=== PATIENT | female | born 1970 | race Caucasian/White ===

== ENCOUNTER 2016-10-07 18:54 | Inpatient (IN) | payer BC, OTHER ==
[~2016-10-07] VITALS: Ht 152.4 cm; Wt 70.4 kg
[2016-10-07 18:56] VITALS: BP 241/105; PULSE 104; RESP 20; TEMP 98.1; O2SAT 98
[2016-10-07] MEDS ORDERED: SODIUM CHLOR 0.9% 1000 ML INJ 1,000 ML IV SCH (20:00)
[2016-10-07] MEDS ORDERED: THIAMINE INJ 100 MG in SODIUM CHLORIDE 0.9% INJ 100 ML IV ONE (20:00)
[2016-10-07] MEDS ORDERED: LORazepam 2 MG/ML VIAL IV PUSH ONE (20:00)
--- NOTE | 2016-10-07 20:11 | PD ---
HPI Chief Complaint: Medical Clearance Time Seen by Provider: 19:31 Travel History International Travel<30 days: No Contact w/Intl Traveler<30days: No Traveled to known affect area: No History of Present Illness HPI 45-year-old female complains of generalized malaise and weakness, shakiness, depression, suicidal ideation. Patient has history alcohol abuse. Last drink was this afternoon about 1:00. Patient has been drinking a lot of vodka recently. Patient states that she started having shaking problem this afternoon. Patient states that she has history of alcohol withdrawal in the past. Patient denies any history of DVT. Patient has history of PTSD, depression and was seen by mental health in the past. Patient was put on medications. Patient has not been taken her medications recently. Patient states that she started having suicidal ideation today. Patient denies any other medical problem. Patient states that she has mild aching headache. Patient denies any visual change. Patient denies any neck pain. Patient denies any chest pain or shortness of breath. Patient states that she has mild intermittent abdominal cramping. Patient denies any nausea vomiting diarrhea. Patient denied dysuria or frequency. Patient denies any fever chills. Patient denies any illicit drug abuse. PFSH Past Medical History Anxiety: Yes Depression: Yes ?: Not LMP: 10/01/16 Social History Alcohol Use: Yes (LAST DRINK AT 1300 TODAY 10/07/16) Tobacco Use: Yes Substance Use: No Allergies-Medications (Allergen,Severity, Reaction): Coded Allergies: No Known Allergies (Unverified , 10/07/16) Review of Systems General / Constitutional: No: Fever Eyes: No: Visual changes HENT: No: Headaches Cardiovascular: No: Chest Pain or Discomfort Respiratory: No: Shortness of Breath Gastrointestinal: No: Abdominal Pain Genitourinary: No: Dysuria Musculoskeletal: No: Pain Skin: No Rash Neurologic: No: Weakness Psychiatric: No: Depression Endocrine: No: Polydipsia Hematologic/Lymphatic: No: Easy Bruising Physical Exam Narrative GENERAL: Well-nourished, well-developed patient. SKIN: Warm and dry. HEAD: Normocephalic. EYES: No scleral icterus. No injection or drainage. NECK: Supple, trachea midline. No JVD or lymphadenopathy. CARDIOVASCULAR: Mild tachycardia rate and rhythm without murmurs, gallops, or rubs. RESPIRATORY: Breath sounds equal bilaterally. No accessory muscle use. GASTROINTESTINAL: Abdomen soft, non-tender, nondistended. MUSCULOSKELETAL: No cyanosis, or edema. BACK: Nontender without obvious deformity. No CVA tenderness. Neurologic exam: Patient is awake and alert oriented 3. No obvious focal neurological deficit. Data Data Last Documented VS Vital Signs Date Time Temp Pulse Resp B/P Pulse Ox O2 Delivery O2 Flow Rate FiO2 10/07/16 21:30 84 16 148/72 97 Room Air 10/07/16 18:56 98.1 Orders Complete Blood Count With Diff (10/07/16 20:00) Comprehensive Metabolic Panel (10/07/16 20:00) Magnesium (Mg) (10/07/16 20:00) Alcohol (Ethanol) (10/07/16 20:00) Phosphorus (Po4) (10/07/16 20:00) Iv Access Insert/Monitor (10/07/16 20:00) Ecg Monitoring (10/07/16 20:00) Oximetry (10/07/16 20:00) Sodium Chlor 0.9% 1000 Ml Inj (Ns 1000 M (10/07/16 20:00) Thiamine Inj (Thiamine Inj) (10/07/16 20:00) Lorazepam Inj (Ativan Inj) (10/07/16 20:00) Urinalysis - C+S If Indicated (10/07/16 20:01) Drug Screen, Random Urine (10/07/16 20:01) Psych Screen (10/07/16 20:01) Ondansetron Inj (Zofran Inj) (10/07/16 21:13) Ondansetron Inj (Zofran Inj) (10/07/16 21:30) Labs Laboratory Tests Test 10/07/16 10/07/16 20:05 21:40 White Blood Count 10.6 TH/MM3 Red Blood Count 4.17 MIL/MM3 Hemoglobin 14.0 GM/DL Hematocrit 40.9 % Mean Corpuscular Volume 98.0 FL Mean Corpuscular Hemoglobin 33.6 PG Mean Corpuscular Hemoglobin 34.3 % Concent Red Cell Distribution Width 14.0 % Platelet Count 467 TH/MM3 Mean Platelet Volume 6.8 FL Neutrophils (%) (Auto) 52.1 % Lymphocytes (%) (Auto) 39.7 % Monocytes (%) (Auto) 6.6 % Eosinophils (%) (Auto) 1.0 % Basophils (%) (Auto) 0.6 % Neutrophils # (Auto) 5.5 TH/MM3 Lymphocytes # (Auto) 4.2 TH/MM3 Monocytes # (Auto) 0.7 TH/MM3 Eosinophils # (Auto) 0.1 TH/MM3 Basophils # (Auto) 0.1 TH/MM3 CBC Comment DIFF FINAL Differential Comment Urine Color YELLOW Urine Turbidity HAZY Urine pH 7.0 Urine Specific Gallagher 1.015 Urine Protein TRACE mg/dL Urine Glucose (UA) NEG mg/dL Urine Ketones NEG mg/dL Urine Occult Blood SMALL Urine Nitrite NEG Urine Bilirubin NEG Urine Urobilinogen LESS THAN 2.0 MG/DL Urine Leukocyte Esterase NEG Urine RBC 3 /hpf Urine WBC 2 /hpf Urine Squamous Epithelial 10 /hpf Cells Urine Mucus FEW /lpf Microscopic Urinalysis Comment CULT NOT INDICATED Urine Opiates Screen NEG Urine Barbiturates Screen NEG Urine Amphetamines Screen NEG Urine Benzodiazepines Screen NEG Urine Cocaine Screen NEG Urine Cannabinoids Screen NEG Sodium Level 139 MEQ/L Potassium Level 3.4 MEQ/L Chloride Level 105 MEQ/L Carbon Dioxide Level 24.0 MEQ/L Anion Gap 10 MEQ/L Blood Urea Nitrogen 7 MG/DL Creatinine 0.53 MG/DL Estimat Glomerular Filtration 126 ML/MIN Rate Random Glucose 71 MG/DL Calcium Level 7.5 MG/DL Phosphorus Level 2.9 MG/DL Magnesium Level 1.7 MG/DL Total Bilirubin 0.2 MG/DL Aspartate Amino Transf 56 U/L (AST/SGOT) Alanine Aminotransferase 52 U/L (ALT/SGPT) Alkaline Phosphatase 61 U/L Total Protein 6.6 GM/DL Albumin 3.5 GM/DL Ethyl Alcohol Level 51 MG/DL [facility] Medical Decision Making Medical Screen Exam Complete: Yes Emergency Medical Condition: Yes Interpretation(s) 22:47 PM. CBC within normal limit. Potassium 3.4. Calcium 7.5. AST 56. Alcohol 51. UA negative. Differential Diagnosis Differential diagnosis including alcohol withdrawal, electrolyte imbalance, dehydration, depression, suicidal. Narrative Course 45-year-old female with shakiness, elevated blood pressure, history of EtOH abuse. Patient is in alcohol withdrawal. Normal saline solution 1 25 cc an hour. Thiamine 100 mg IV. Ativan 1 mg IV. Diagnosis Primary Impression: Alcohol withdrawal Qualified Code: F10.230 - Alcohol withdrawal, uncomplicated Additional Impression: Suicidal ideation Neo Vazquez MD Oct 07, 2016 20:11
[2016-10-07 20:19] VITALS: O2SAT 98
[2016-10-07 20:30] VITALS: BP 178/89; PULSE 88; RESP 18; O2SAT 98
[2016-10-07 21:00] VITALS: BP 157/74; PULSE 78; RESP 18; O2SAT 97
[2016-10-07 21:09] LABS: AMPHETAMINE, URINE NEG (NEG); BARBITURATES, URINE NEG (NEG); COCAINE, URINE NEG (NEG)
[2016-10-07 21:12] LABS: BLOOD, URINE SMALL (NEG); COMMENT (UR) CULT NOT INDICATED; CULTURE IF INDICATED CULT NOT INDICATED; GLUCOSE,URINE NEG (NEG); KETONE, URINE NEG (NEG); MUCUS URINE FEW /lpf (OCC); NITRITE,URINE NEG (NEG); SQUAMOUS EPITHELIAL CELL URINE 10 /hpf (0-5); URINE COLOR YELLOW (YELLW/STRAW)
[2016-10-07] MEDS ORDERED: ONDANSETRON HCL 4 MG/2 ML VIAL ONE (21:13)
[2016-10-07 21:19] LABS: AUTOMATED NEUTROPHIL # 5.5 TH/MM3 (1.8-7.7); BASOPHIL # 0.1 TH/MM3 (0-0.2); BASOPHIL % 0.6 % (0.0-2.0); EOSINOPHIL # 0.1 TH/MM3 (0-0.4); HEMATOCRIT 40.9 % (35.0-46.0); HEMO FLAGS DIFF FINAL; LYMPH % 39.7 % (9.0-44.0); LYMPHOCYTE # 4.2 TH/MM3 (1.0-4.8); MEAN CORPUSCULAR HEMOGLOBIN 33.6 PG (27.0-34.0); MEAN CORPUSCULAR HGB CONC 34.3 % (32.0-36.0); MONO % 6.6 % (0.0-8.0); NEUT % 52.1 % (16.0-70.0); PLATELET COUNT 467 TH/MM3 (150-450); RED BLOOD COUNT 4.17 MIL/MM3 (4.00-5.30); WHITE BLOOD COUNT 10.6 TH/MM3 (4.0-11.0)
[2016-10-07 21:30] VITALS: BP 148/72; PULSE 84; RESP 16; O2SAT 97
[2016-10-07] MEDS ORDERED: ONDANSETRON HCL 4 MG/2 ML VIAL IV PUSH ONE (21:30)
[2016-10-07 22:40] LABS: ANION GAP 10 MEQ/L (5-15); AST (GOT) 56 U/L (15-37); BLOOD UREA NITROGEN 7 MG/DL (7-18); CHLORIDE 105 MEQ/L (98-107); GLOMERULAR FILTRATION RATE 126 ML/MIN (>89); MAGNESIUM 1.7 MG/DL (1.5-2.5); POTASSIUM 3.4 MEQ/L (3.5-5.1); SODIUM (NA) 139 MEQ/L (136-145)
[2016-10-07 22:43] LABS: ALKALINE PHOSPHATASE 61 U/L (45-117); ALT (GPT) 52 U/L (10-53); TOTAL BILIRUBIN ADULT 0.2 MG/DL (0.2-1.0)
[2016-10-07 23:05] VITALS: BP 156/74; PULSE 85; RESP 16; O2SAT 99
--- NOTE | 2016-10-07 23:14 | HHI.HP ---
HPI Service [facility] Primary Care Physician No Primary Care Physician Admission Diagnosis alcohol withdrawal. Suicidal. Diagnoses: (1) Alcohol withdrawal Diagnosis: Principal (2) Suicidal ideation Diagnosis: Principal (3) Tobacco abuse Diagnosis: Principal Travel History International Travel<30 Days: No Contact w/Intl Traveler <30 Da: No Traveled to Known Affected Are: No History of Present Illness This is a 45-year-old female with a PMH of Anxiety, Depression, PTSD, Alcohol Abuse and Tobacco Abuse who came to the ER w/ complaints of alcohol withdrawal. Reports last drink was at approx 1pm today. While in ER, pt relayed suicidal ideation, currently under Smalls Act. On arrival, BP 178/89, HR 88, O2 sat 98% on RA, Afebrile. CBC essentially unremarkable. Chemistry unremarkable except for K+ 3.4, s/p replacement in ER. UA negative. Urine Drug Screen negative. Alcohol 51. Review of Systems Other ROS: 14 point review of systems otherwise negative. Past Family Social History Past Medical History PMH: Anxiety, Depression, PTSD, Alcohol Abuse and Tobacco Abuse Past Surgical History PAST SURGICAL HISTORY: None Allergies: Coded Allergies: No Known Allergies (Unverified , 10/07/16) Family History PAST FAMILY HISTORY: Reviewed. No h/o DM or CAD Social History PAST SOCIAL HISTORY: Drinks daily, last drink approx 1pm. Smokes 1ppd. Denies drugs. Physical Exam Vital Signs Vital Signs Date Time Temp Pulse Resp B/P Pulse Ox O2 Delivery O2 Flow Rate FiO2 10/07/16 23:05 85 16 156/74 99 Room Air 10/07/16 21:30 84 16 148/72 97 Room Air 10/07/16 21:00 78 18 157/74 97 Room Air 10/07/16 20:30 88 18 178/89 98 Room Air 10/07/16 20:19 98 Room Air 10/07/16 19:35 95 20 10/07/16 18:56 98.1 104 20 241/105 98 Physical Exam PE: GENERAL: Middle-aged female in no acute distress. HEENT: PERRLA, EOMI. No scleral icterus or conjunctival pallor. No lid lag or facial droop. CARDIOVASCULAR: Regular rate and rhythm. No obvious murmurs to auscultation. No chest tenderness to palpation. RESPIRATORY: No obvious rhonchi or wheezing. Clear to auscultation. Breath sounds equal bilaterally. GASTROINTESTINAL: Abdomen soft, non-tender, nondistended. BS normal. MUSCULOSKELETAL: Extremities without clubbing, cyanosis, or edema. No obvious deformities. NEUROLOGICAL: Awake, alert and oriented x4. No focal neurologic deficits. Moving both upper and lower extremities spontaneously. Laboratory Laboratory Tests Test 10/07/16 10/07/16 20:05 21:40 White Blood Count 10.6 Red Blood Count 4.17 Hemoglobin 14.0 Hematocrit 40.9 Mean Corpuscular Volume 98.0 Mean Corpuscular Hemoglobin 33.6 Mean Corpuscular Hemoglobin 34.3 Concent Red Cell Distribution Width 14.0 Platelet Count 467 Mean Platelet Volume 6.8 Neutrophils (%) (Auto) 52.1 Lymphocytes (%) (Auto) 39.7 Monocytes (%) (Auto) 6.6 Eosinophils (%) (Auto) 1.0 Basophils (%) (Auto) 0.6 Neutrophils # (Auto) 5.5 Lymphocytes # (Auto) 4.2 Monocytes # (Auto) 0.7 Eosinophils # (Auto) 0.1 Basophils # (Auto) 0.1 CBC Comment DIFF FINAL Differential Comment Urine Color YELLOW Urine Turbidity HAZY Urine pH 7.0 Urine Specific Ralph 1.015 Urine Protein TRACE Urine Glucose (UA) NEG Urine Ketones NEG Urine Occult Blood SMALL Urine Nitrite NEG Urine Bilirubin NEG Urine Urobilinogen LESS THAN 2.0 Urine Leukocyte Esterase NEG Urine RBC 3 Urine WBC 2 Urine Squamous Epithelial 10 Cells Urine Mucus FEW Microscopic Urinalysis Comment CULT NOT INDICATED Urine Opiates Screen NEG Urine Barbiturates Screen NEG Urine Amphetamines Screen NEG Urine Benzodiazepines Screen NEG Urine Cocaine Screen NEG Urine Cannabinoids Screen NEG Sodium Level 139 Potassium Level 3.4 Chloride Level 105 Carbon Dioxide Level 24.0 Anion Gap 10 Blood Urea Nitrogen 7 Creatinine 0.53 Estimat Glomerular Filtration 126 Rate Random Glucose 71 Calcium Level 7.5 Phosphorus Level 2.9 Magnesium Level 1.7 Total Bilirubin 0.2 Aspartate Amino Transf 56 (AST/SGOT) Alanine Aminotransferase 52 (ALT/SGPT) Alkaline Phosphatase 61 Total Protein 6.6 Albumin 3.5 Ethyl Alcohol Level 51 Result Diagram: 10/07/16200410/07/162139 Assessment and Plan Problem List: (1) Alcohol withdrawal ICD Code: F10.239 Status: Acute (2) Suicidal ideation ICD Code: R45.851 Status: Acute (3) Tobacco abuse ICD Code: Z72.0 Status: Acute Assessment and Plan A/P: 1. Alcohol Withdrawal: Drinks daily, last drink approx 1pm 10/07/16, Alcohol 51. +tremulous on arrival, s/p Ativan. Will start CIWA, Seizure Precautions, MVT/Thiamine/Folate replacement. IVF for hydration. 2. Suicidal Ideation: Pt w/ suicidal ideation while in ER, currently under Smalls Act. Consult Psych for further evaluation. 3. Tobacco Abuse: Pt counselled. Ativan/NicoDerm prn if needed. 4. DVT Prophylaxis: SCD/Teds. 5. Social work for d/c planning as needed. 6. Case discussed w/ ER physician at length. Physician Certification 2 Midnight Certification Type: Admission for Inpatient Services Order for Inpatient Services The services are ordered in accordance with Medicare regulations or non- Medicare payer requirements, as applicable. In the case of services not specified as inpatient-only, they are appropriately provided as inpatient services in accordance with the 2-midnight benchmark. Estimated LOS (days): 2 days is the estimated time the patient will need to remain in the hospital, assuming treatment plan goals are met and no additional complications. Post-Hospital Plan: Not yet determined Problem Qualifiers (1) Alcohol withdrawal: Qualified Code: F10.230 - Alcohol withdrawal, uncomplicated Mary Anne Ochoa MD Oct 07, 2016 23:13
[2016-10-07] MEDS ORDERED: FLUMAZENIL 0.5 MG/5 ML VIAL IV PUSH PRN (23:15)
[2016-10-07] MEDS ORDERED: LORazepam 2 MG/ML VIAL IV PUSH PRN ×4 (23:15)
[2016-10-07] MEDS ORDERED: SODIUM CHLORIDE 0.9% FLUSH 5 ML FLUSH FLUSH PRN (23:15)
[2016-10-07] MEDS ORDERED: ONDANSETRON HCL 4 MG/2 ML VIAL IVP PRN (23:15)
[2016-10-07] MEDS ORDERED: LORazepam 2 MG TAB PO PRN (23:15)
[2016-10-07] MEDS ORDERED: HALOPERIDOL LACTATE 5 MG/ML AMP IM PRN (23:15)
[2016-10-07] MEDS ORDERED: BISACODYL 10 MG SUPP PR PRN (23:15)
[2016-10-08] VITALS (7 sets, daily range): BP systolic 138–196; BP diastolic 65–105; PULSE 74–102; RESP 16–26; TEMP 96.1–98.4; O2SAT 93–97
[2016-10-08] MEDS: THIAMINE INJ 100 MG in SODIUM CHLORIDE 0.9% INJ 100 ML IV SCH ×2 (00:07→23:24)
[2016-10-08] MEDS: MULTIVITAMIN INJ 10 ML, FOLIC ACID INJ 1 MG in SODIUM CHLORID 0.9% 500 ML INJ 500 ML IV SCH ×2 (00:08→23:23)
[2016-10-08] MEDS: SODIUM CHLOR 0.9% 1000 ML INJ 1,000 ML IV SCH ×3 (00:08→17:58)
[2016-10-08 06:27] LABS: ALT (GPT) 48 U/L (10-53); ANION GAP 9 MEQ/L (5-15); AST (GOT) 46 U/L (15-37); BICARBONATE 24.6 MEQ/L (21.0-32.0); BLOOD UREA NITROGEN 6 MG/DL (7-18); CHLORIDE 106 MEQ/L (98-107); GLOMERULAR FILTRATION RATE 138 ML/MIN (>89); POTASSIUM 3.3 MEQ/L (3.5-5.1); SODIUM (NA) 140 MEQ/L (136-145)
[2016-10-08 06:30] LABS: ALKALINE PHOSPHATASE 58 U/L (45-117); TOTAL BILIRUBIN ADULT 0.5 MG/DL (0.2-1.0)
[2016-10-08 06:31] LABS: AUTOMATED NEUTROPHIL # 4.5 TH/MM3 (1.8-7.7); BASOPHIL % 0.5 % (0.0-2.0); EOSINOPHIL # 0.1 TH/MM3 (0-0.4); EOSINOPHIL % 1.8 % (0.0-4.0); HEMO FLAGS DIFF FINAL; LYMPH % 31.1 % (9.0-44.0); LYMPHOCYTE # 2.3 TH/MM3 (1.0-4.8); MEAN CORPUSCULAR HEMOGLOBIN 33.3 PG (27.0-34.0); MEAN CORPUSCULAR HGB CONC 34.3 % (32.0-36.0); MONO % 5.9 % (0.0-8.0); NEUT % 60.7 % (16.0-70.0); PLATELET COUNT 431 TH/MM3 (150-450); RED BLOOD COUNT 3.92 MIL/MM3 (4.00-5.30); RED CELL DISTRIBUTION WIDTH 13.5 % (11.6-17.2); WHITE BLOOD COUNT 7.4 TH/MM3 (4.0-11.0)
[2016-10-08] MEDS: SODIUM CHLORIDE 0.9% FLUSH 5 ML FLUSH FLUSH SCH ×2 (09:00→20:44)
[2016-10-08] MEDS ORDERED: INFLUENZA VIRUS VACCINE (QUADRIVALENT) 0.5 ML SYR IM ONE (09:00)
[2016-10-08] MEDS ORDERED: PNEUMOCOCCAL POLYVALENT INJ 25 MCG/0.5 ML SYR IM ONE (09:00)
--- NOTE | 2016-10-08 09:20 | HHI.PR ---
Subjective Remarks overall feels better today. says that she's tired. no abdominal pain, nausea or vomiting. Objective Vitals Vital Signs Date Time Temp Pulse Resp B/P Pulse Ox O2 Delivery O2 Flow Rate FiO2 10/08/16 07:52 98.4 87 20 178/81 93 10/08/16 04:00 140/67 10/08/16 03:00 85 10/08/16 02:45 96.9 91 26 196/105 95 10/07/16 23:05 85 16 156/74 99 Room Air 10/07/16 21:30 84 16 148/72 97 Room Air 10/07/16 21:00 78 18 157/74 97 Room Air 10/07/16 20:30 88 18 178/89 98 Room Air 10/07/16 20:19 98 Room Air 10/07/16 19:35 95 20 10/07/16 18:56 98.1 104 20 241/105 98 I/O 10/07/16 10/07/16 10/07/16 10/08/16 10/08/16 10/08/16 07:00 15:00 23:00 07:00 15:00 23:00 Intake Total 776 ml Balance 776 ml Intake IV Total 776 ml # Voids 2 # Bowel Movements 1 Result Diagram: 10/08/1651910/08/16 0520 Objective Remarks GENERAL: This is a well-nourished, well-developed patient, in no apparent distress. CARDIOVASCULAR: Regular rate and regular rhythm without murmurs, gallops, or rubs. RESPIRATORY: Clear to auscultation. Breath sounds equal bilaterally. No wheezes , rales, or rhonchi. GASTROINTESTINAL: Abdomen soft, non-tender, nondistended. Normal, active bowel sounds MUSCULOSKELETAL: Extremities without clubbing, cyanosis, or edema. NEURO: Alert & Oriented x4 to person, place, time, situation. Moves all ext x4 Procedures none Medications and IVs Current Medications Sodium Chloride 1,000 ml @ 125 mls/hr Q8H IV Last administered on 10/07/16 20 :17; Start 10/07/16 at 20:00; Stop 10/07/16 at 23:53; Status DC Thiamine HCl/ Sodium Chloride (Thiamine Inj/NS Inj) 101 ml @ 101 mls/hr ONCE ONCE IV Last administered on 10/07/16 20:16; Start 10/07/16 at 20:00; Stop at 20:59; Status DC Lorazepam (Ativan Inj) 1 mg ONCE ONCE IV PUSH Last administered on 10/07/16 20:16; Start 10/07/16 at 20:00; Stop 10/07/16 at 20:02; Status DC Ondansetron HCl (Zofran Inj) 4 mg STK-MED ONCE .ROUTE ; Start 10/07/16 at 21:13 ; Stop 10/07/16 at 21:14; Status DC Ondansetron HCl 4 mg 4 mg ONCE ONCE IV PUSH Last administered on 10/07/16 21: 42; Start 10/07/16 at 21:30; Stop 10/07/16 at 21:31; Status DC Multivitamins 10 ml/Folic Acid 1 mg/Sodium Chloride 510.2 ml @ 125 mls/hr Q24H IV Last administered on 10/08/16 00:08; Start 10/07/16 at 23:15; Stop 10/12/16 at 23:14 Thiamine HCl/ Sodium Chloride (Thiamine Inj/NS Inj) 101 ml @ 100 mls/hr Q24H IV Last administered on 10/08/16 00:07; Start 10/07/16 at 23:15; Stop at 23:14 Thiamine HCl (Vitamin B1) 100 mg DAILY PO ; Start 10/11/16 at 09:00 Flumazenil (Romazicon Inj) 0.2 mg Q1M PRN IV PUSH SEE LABEL COMMENTS; Start at 23:15; Stop 10/07/16 at 23:21; Status DC Lorazepam (Ativan) 1 mg Q4H PRN PO CIWA 8 - 10; Start 10/07/16 at 23:15 Lorazepam (Ativan Inj) 1 mg Q4H PRN IV PUSH CIWA 8 - 10; Start 10/07/16 at 23: 15 Lorazepam (Ativan) 2 mg Q2H PRN PO CIWA 11-14 Last administered on 10/08/16 02 :53; Start 10/07/16 at 23:15 Lorazepam (Ativan Inj) 2 mg Q2H PRN IV PUSH CIWA 11-14; Start 1/28/17 at 23:15 Lorazepam (Ativan Inj) 2 mg Q1H PRN IV PUSH CIWA 15-20; Start 10/07/16 at 23:15 Lorazepam (Ativan Inj) 2 mg Q15M PRN IV PUSH CIWA > 20; Start 10/07/16 at 23:15 Haloperidol Lactate 2 mg 2 mg Q15M PRN IM SEE LABEL COMMENTS; Start 10/07/16 at 23:15 Sodium Chloride (NS 1000 ml Inj) 1,000 ml @ 100 mls/hr Q10H IV Last administered on 10/08/16t 00:08; Start 10/07/16 at 23:11 IV Flush (NS Flush) 2 ml UNSCH PRN FLUSH FLUSH AFTER USING IV ACCESS; Start at 23:15 IV Flush (NS Flush) 2 ml BID FLUSH ; Start 10/08/16 at 09:00 Ondansetron HCl (Zofran Inj) 4 mg Q6H PRN IVP NAUSEA OR VOMITING; Start at 23:15 Bisacodyl (Dulcolax Supp) 10 mg DAILY PRN CO CONSTIPATION; Start 10/07/16 at 23 :15 Pneumococcal Polyvalent Vaccine (Pneumovax-23 Inj) 25 mcg ONCE ONCE IM ; Start 10/08/16 at 09:00; Stop 10/08/16 at 09:01; Status DC Influenza Virus Vaccine (Flu (Quadrivalent) Vaccine Inj) 0.5 ml ONCE ONCE IM ; Start 10/08/16 at 09:00; Stop 10/08/16 at 09:01; Status DC A/P Assessment and Plan A/P 1. Alcohol Withdrawal: started CIWA, Seizure Precautions, MVT/Thiamine/Folate replacement. IVF for hydration. 2. Suicidal Ideation: Pt w/ suicidal ideation while in ER, currently under Smalls Act. Consulted Psych for further evaluation. 3. Tobacco Abuse: Pt counselled. Ativan/NicoDerm prn if needed. 4.mild hypokalemia; will replace. 5. DVT Prophylaxis: SCD/Teds. Hany Tovar MD Oct 08, 2016 09:20
[2016-10-08] MEDS ORDERED: POTASSIUM CHLORIDE 10 MEQ CONTROLLED RELEASE TAB PO ONE (10:00)
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
[2016-10-08] MEDS: LORazepam 1 MG TAB PO PRN ×2 (11:59→15:44)
[2016-10-08] MEDS: ENALAPRILAT 1.25 MG/ML VIAL IV PUSH PRN (16:27)
[2016-10-08] MEDS: NICOTINE 21 MG/24 HR PATCH TD SCH (18:43)
[2016-10-09] VITALS: BP 168/76; PULSE 77; RESP 18; TEMP 97.3; O2SAT 94
[2016-10-09 04:00] VITALS: BP 134/82; PULSE 70; RESP 16; TEMP 97.7; O2SAT 93
[2016-10-09] MEDS: SODIUM CHLOR 0.9% 1000 ML INJ 1,000 ML IV SCH (05:08)
[2016-10-09 07:55] VITALS: BP 198/92; PULSE 82; RESP 18; TEMP 97; O2SAT 98
[2016-10-09] MEDS: NICOTINE 21 MG/24 HR PATCH TD SCH (08:25)
[2016-10-09] MEDS: ENALAPRILAT 1.25 MG/ML VIAL IV PUSH PRN (08:25)
[2016-10-09] MEDS: SODIUM CHLORIDE 0.9% FLUSH 5 ML FLUSH FLUSH SCH (08:27)
[2016-10-09] MEDS ORDERED: REMOVE OLD PATCH TD SCH (09:00)
--- NOTE | 2016-10-09 10:37 | HHI.PR ---
Subjective Remarks in no acute distress. wants to go home and she says that she's more comfortable at home. d/w the RN. Objective Vitals Vital Signs Date Time Temp Pulse Resp B/P Pulse Ox O2 Delivery O2 Flow Rate FiO2 10/09/16 07:55 97.0 82 18 198/92 98 10/09/16 04:00 97.7 70 16 134/82 93 10/09/16 00:00 97.3 77 18 168/76 94 10/08/16 20:00 98.2 83 16 138/65 94 10/08/16 20:00 102 10/08/16 16:46 98.1 74 20 182/81 94 10/08/16 12:23 96.1 82 20 169/80 97 I/O 10/08/16 10/08/16 10/08/16 10/09/16 10/09/16 10/09/16 07:00 15:00 23:00 07:00 15:00 23:00 Intake Total 776 ml 240 ml 863 ml Balance 776 ml 240 ml 863 ml Intake Oral 240 ml IV Total 776 ml 863 ml # Voids 2 3 2 # Bowel Movements 1 2 Result Diagram: 10/08/16 0520 10/08/16 0520 Objective Remarks GENERAL: This is a well-nourished, well-developed patient, in no apparent distress. CARDIOVASCULAR: Regular rate and regular rhythm without murmurs, gallops, or rubs. RESPIRATORY: Clear to auscultation. Breath sounds equal bilaterally. No wheezes , rales, or rhonchi. GASTROINTESTINAL: Abdomen soft, non-tender, nondistended. Normal, active bowel sounds MUSCULOSKELETAL: Extremities without clubbing, cyanosis, or edema. NEURO: Alert & Oriented x4 to person, place, time, situation. Moves all ext x4 Procedures none Medications and IVs Current Medications Sodium Chloride 1,000 ml @ 125 mls/hr Q8H IV Last administered on 10/07/16 20 :17; Start 10/07/16 at 20:00; Stop 10/07/16 at 23:53; Status DC Thiamine HCl/ Sodium Chloride (Thiamine Inj/NS Inj) 101 ml @ 101 mls/hr ONCE ONCE IV Last administered on 10/07/16 20:16; Start 10/07/16 at 20:00; Stop at 20:59; Status DC Lorazepam (Ativan Inj) 1 mg ONCE ONCE IV PUSH Last administered on 10/07/16 20:16; Start 10/07/16 at 20:00; Stop 10/07/16 at 20:02; Status DC Ondansetron HCl (Zofran Inj) 4 mg STK-MED ONCE .ROUTE ; Start 10/07/16 at 21:13 ; Stop 10/07/16 at 21:14; Status DC Ondansetron HCl 4 mg 4 mg ONCE ONCE IV PUSH Last administered on 10/07/16 21: 42; Start 10/07/16 at 21:30; Stop 10/07/16 at 21:31; Status DC Multivitamins 10 ml/Folic Acid 1 mg/Sodium Chloride 510.2 ml @ 125 mls/hr Q24H IV Last administered on 10/08/16 23:23; Start 10/07/16 at 23:15; Stop 10/12/16 at 23:14 Thiamine HCl/ Sodium Chloride (Thiamine Inj/NS Inj) 101 ml @ 100 mls/hr Q24H IV Last administered on 10/08/16 23:24; Start 10/07/16 at 23:15; Stop at 23:14 Thiamine HCl (Vitamin B1) 100 mg DAILY PO ; Start 10/11/16 at 09:00 Flumazenil (Romazicon Inj) 0.2 mg Q1M PRN IV PUSH SEE LABEL COMMENTS; Start at 23:15; Stop 10/07/16 at 23:21; Status DC Lorazepam (Ativan) 1 mg Q4H PRN PO CIWA 8 - 10 Last administered on 10/08/16 15:44; Start 10/07/16 at 23:15 Lorazepam (Ativan Inj) 1 mg Q4H PRN IV PUSH CIWA 8 - 10; Start 10/07/16 at 23: 15 Lorazepam (Ativan) 2 mg Q2H PRN PO CIWA 11-14 Last administered on 10/08/16 02 :53; Start 10/07/16 at 23:15 Lorazepam (Ativan Inj) 2 mg Q2H PRN IV PUSH CIWA 11-14; Start 10/07/16 at 23:15 Lorazepam (Ativan Inj) 2 mg Q1H PRN IV PUSH CIWA 15-20; Start 10/07/16 at 23:15 Lorazepam (Ativan Inj) 2 mg Q15M PRN IV PUSH CIWA > 20; Start 10/07/16 at 23:15 Haloperidol Lactate 2 mg 2 mg Q15M PRN IM SEE LABEL COMMENTS; Start 10/07/16 at 23:15 Sodium Chloride (NS 1000 ml Inj) 1,000 ml @ 100 mls/hr Q10H IV Last administered on 10/09/16 05:08; Start 10/07/16 at 23:11 IV Flush (NS Flush) 2 ml UNSCH PRN FLUSH FLUSH AFTER USING IV ACCESS; Start at 23:15 IV Flush (NS Flush) 2 ml BID FLUSH Last administered on 10/09/16 08:27; Start 10/08/16 at 09:00 Ondansetron HCl (Zofran Inj) 4 mg Q6H PRN IVP NAUSEA OR VOMITING Last administered on 10/09/16 08:38; Start 10/07/16 at 23:15 Bisacodyl (Dulcolax Supp) 10 mg DAILY PRN [place] CONSTIPATION; Start 10/07/16 at 23 :15 Pneumococcal Polyvalent Vaccine (Pneumovax-23 Inj) 25 mcg ONCE ONCE IM Last administered on 10/08/16 09:32; Start 10/08/16 at 09:00; Stop 10/08/16 at 09:01 ; Status DC Influenza Virus Vaccine (Flu (Quadrivalent) Vaccine Inj) 0.5 ml ONCE ONCE IM Last administered on 10/08/16 09:00; Start 10/08/16 at 09:00; Stop 10/08/16 at 09:01; Status DC Potassium Chloride (KCl) 30 meq ONCE ONCE PO Last administered on 10/08/16 11 :38; Start 10/08/16 at 10:00; Stop 10/08/16 at 10:01; Status DC Enalaprilat (Vasotec Inj) 1.25 mg Q8H PRN IV PUSH SBP> OR = 180, DBP> OR = 100 Last administered on 10/09/16 08:25; Start 10/08/16 at 09:30 Nicotine (Habitrol 21 Mg Patch.24 Hr) 1 patch DAILY TD Last administered on 08:25; Start 10/08/16 at 18:40 Miscellaneous Information 1 DAILY TD Last administered on 10/09/16 08:28; Start 10/09/16 at 09:00 A/P Assessment and Plan A/P 1. Alcohol Withdrawal: better- started on ativan as needed. continue MVT/ Thiamine/Folate replacement. IVF for hydration. 2. Suicidal Ideation: Pt w/ suicidal ideation while in ER. psych consult edwardo- devi act [employer] boat [employer]-f/u as outpatient. 3. Tobacco Abuse: Pt counselled. Ativan/NicoDerm prn if needed. 4.mild hypokalemia; replaced. 5. DVT Prophylaxis: SCD/Teds. Discharge Planning dc home likely later today. see med list. f/u with pcp and psych. d/w the patient regarding the alcohol cessation and she's willing to quit; case management consulted to provide the patient with some information on detox. d/w the case management and RN. Hany Tovar MD Oct 09, 2016 10:37
[2016-10-09] MEDS ORDERED: MULT1TAB84 PO (10:42)
[2016-10-09] MEDS ORDERED: NICO14DI T-DERMAL (10:42)
[2016-10-09] MEDS ORDERED: NICO21DI2 T-DERMAL (10:42)
[2016-10-09] MEDS ORDERED: NICO7DIS2 T-DERMAL (10:42)
[2016-10-09] MEDS ORDERED: VITA100T2 PO (10:42)
[2016-10-09] MEDS ORDERED: cloNIDine HCL 0.1 MG TAB PO ONE (11:00)
[2016-10-09 12:32] VITALS: BP 179/96; PULSE 82; RESP 17; TEMP 97.2; O2SAT 95
[2016-10-09 12:39] VITALS: BP 130/95
[2016-10-09 15:58] VITALS: BP 141/71; PULSE 93; RESP 20; TEMP 98.5; O2SAT 98
--- NOTE | 2016-10-09 16:30 | HHI.DCPOC ---
Discharge Care Plan Diagnosis: (1) Alcohol withdrawal Your Health Problems Are: Anxiety Goals to Promote Your Health * To prevent worsening of your condition and complications * To maintain your health at the optimal level Directions to Meet Your Goals Take your medications as prescribed Follow your dietary instruction Follow activity as directed Keep your appointments as scheduled Take your immunizations and boosters as scheduled If your symptoms worsen call your PCP, if no PCP go to Urgent Care Center or Emergency Room Smoking is Dangerous to Your Health. Avoid second hand smoke Call the 24-hour hour crisis hotline for domestic abuse at Hany Tovar MD Oct 09, 2016 16:30
--- NOTE | 2016-10-09 16:31 | HHI.DS ---
Discharge Summary Admission Date Oct 07, 2016 at 23:16 Discharge Date: Oct 09, 2016 Admitting Diagnosis alcohol withdrawal. Suicidal. (1) Alcohol withdrawal ICD Code: F10.239 Diagnosis: Principal (2) Suicidal ideation ICD Code: R45.851 Diagnosis: Principal (3) Tobacco abuse ICD Code: Z72.0 Diagnosis: Secondary Procedures none Brief History - From Admission This is a 45-year-old female with a PMH of Anxiety, Depression, PTSD, Alcohol Abuse and Tobacco Abuse who came to the ER w/ complaints of alcohol withdrawal. Reports last drink was at approx 1pm today. While in ER, pt relayed suicidal ideation, currently under Smalls Act. On arrival, BP 178/89, HR 88, O2 sat 98% on RA, Afebrile. CBC essentially unremarkable. Chemistry unremarkable except for K+ 3.4, s/p replacement in ER. UA negative. Urine Drug Screen negative. Alcohol 51. CBC/BMP: 10/08/16 0520 10/08/16 0520 Significant Findings Laboratory Tests Test 10/07/16 10/07/16 10/08/16 20:05 21:40 05:20 Platelet Count 467 TH/MM3 (150-450) Mean Platelet Volume 6.8 FL (7.0-11.0) Urine Turbidity HAZY (CLEAR) Urine Occult Blood SMALL (NEG) Urine Mucus FEW /lpf (OCC) Potassium Level 3.4 MEQ/L 3.3 MEQ/L (3.5-5.1) (3.5-5.1) Random Glucose 71 MG/DL (74-106) Calcium Level 7.5 MG/DL 7.5 MG/DL (8.5-10.1) (8.5-10.1) Aspartate Amino Transf 56 U/L (15-37) 46 U/L (15-37) (AST/SGOT) Ethyl Alcohol Level 51 MG/DL (0-5) Red Blood Count 3.92 MIL/MM3 (4.00-5.30) Blood Urea Nitrogen 6 MG/DL (7-18) Creatinine 0.49 MG/DL (0.50-1.00) Total Protein 6.1 GM/DL (6.4-8.2) Albumin 3.3 GM/DL (3.4-5.0) PE at Discharge GENERAL: This is a well-nourished, well-developed patient, in no apparent distress. CARDIOVASCULAR: Regular rate and regular rhythm without murmurs, gallops, or rubs. RESPIRATORY: Clear to auscultation. Breath sounds equal bilaterally. No wheezes , rales, or rhonchi. GASTROINTESTINAL: Abdomen soft, non-tender, nondistended. Normal, active bowel sounds MUSCULOSKELETAL: Extremities without clubbing, cyanosis, or edema. NEURO: Alert & Oriented x4 to person, place, time, situation. Moves all ext x4 Hospital Course 1. Alcohol Withdrawal: better- started on ativan as needed. continue MVT/ Thiamine/Folate replacement. IVF for hydration. 2. Suicidal Ideation: Pt w/ suicidal ideation while in ER. psych consult edwardo- shandra bhatia-f/u as outpatient. 3. Tobacco Abuse: Pt counselled. Ativan/NicoDerm prn if needed. 4.mild hypokalemia; replaced. 5. DVT Prophylaxis: SCD/Teds. Pt Condition on Discharge: Fair Discharge Disposition: Discharge Home Discharge Time: <= 30 minutes Discharge Instructions DIET: Follow Instructions for: Heart Healthy Diet Activities you can perform: Regular-No Restrictions Follow up Referrals: PCP Follow-up New Medications: Multiple Vitamins W/ Minerals (Multivitamin Adults) 1 Tab 1 TAB PO DAILY Nutritional Supplement Days 30 Ref 0 TAB Nicotine Patch (Nicotine Patch) 7 Mg/24 Hr Patch 7 MG T-DERMAL DAILY Smoking Cessation Days 14 Ref 0 PATCH Nicotine Patch (Nicotine Patch) 14 Mg/24 Hr Patch 14 MG T-DERMAL DAILY Smoking Cessation Days 14 Ref 0 PATCH Nicotine Patch (Nicotine Patch) 21 Mg/24 Hr Patch 21 MG T-DERMAL DAILY Smoking Cessation Days 42 Ref 0 PATCH Thiamine (Vitamin B-1) 100 Mg Tab 100 MG PO DAILY vitamin Days 30 Ref 0 TAB Hany Tovar MD Oct 09, 2016 16:31
[2016-10-11] MEDS ORDERED: THIAMINE HCL 100 MG TAB PO SCH (09:00)
== END 2016-10-09 17:36 | disposition home or self-care (01) | DRG 897 ==
LOC: NEPE 18:54 → NEDA 23:16 → N05B 10-08 02:35
PROVIDERS: ADMIT Internal Medicine; ATTEND Internal Medicine
DX: F10.239 Alcohol dependence with withdrawal, unspecified (principal); R45.851 Suicidal ideations; F10.24 Alcohol dependence with alcohol-induced mood disorder; Y90.2 Blood alcohol level of 40-59 mg/100 ml; F43.10 Post-traumatic stress disorder, unspecified; F32.9 Major depressive disorder, single episode, unspecified; F41.9 Anxiety disorder, unspecified; E87.6 Hypokalemia; F17.210 Nicotine dependence, cigarettes, uncomplicated; Z23 Encounter for immunization
CPT/HCPCS: 80053; 80307; 80320; 81001; 82948; 83735; 84100; 85025; 90686; 90732; 96361; 96374; 96375; J2060; J2405; J3411; J7030; J7040; Q2038

== ENCOUNTER 2017-10-17 19:19 | Emergency (ER) | payer BC, OTHER ==
[~2017-10-17 19:19] MED LIST: MULT1TAB84 PO; NICO14DI T-DERMAL; NICO21DI2 T-DERMAL; NICO7DIS2 T-DERMAL; VITA100T2 PO
[2017-10-17 19:37] VITALS: BP 163/94; PULSE 106; RESP 20; TEMP 98.6; O2SAT 96
[2017-10-17] MEDS ORDERED: LORazepam 2 MG/ML VIAL IV ONE (19:45)
[2017-10-17] MEDS ORDERED: ZOLO100T PO (19:47)
[2017-10-17] MEDS ORDERED: BUSP15TA PO (19:47)
[2017-10-17] MEDS ORDERED: CLON0.1T PO (19:47)
[2017-10-17] MEDS ORDERED: HYDR12.57 PO (19:47)
[2017-10-17] MEDS ORDERED: AMLO2.5T PO (19:47)
[2017-10-17] MEDS ORDERED: BUPR100CR PO (19:47)
[2017-10-17] MEDS ORDERED: cholesteral med PO (19:47)
--- NOTE | 2017-10-17 19:49 | PD ---
HPI Chief Complaint: Psychiatric Symptoms Time Seen by Provider: 19:36 Travel History International Travel<30 days: No Contact w/Intl Traveler<30days: No Traveled to known affect area: No History of Present Illness HPI Patient is a 46-year-old female presenting to the emergency department under a Smalls act for psychiatric evaluation secondary to suicidal ideations. Patient admits to drinking all morning, she states she has been drinking vodka with orange juice and her last drink was at 1 PM. Patient reported to her mother that she wanted to . She has been biting herself to relieve her pain. Patient reported that she is tired of being depressed. Patient had to be restrained by police because she tried to run. Patient denies any hallucinations or homicidal ideations. She reports a history of depression, anxiety, hypertension, hyperlipidemia, PTSD. She denies any illicit drug use, she reports that she drinks every day. [facility] Past Medical History Anxiety: Yes Depression: Yes High Cholesterol: Yes Endocrine: No Genitourinary: No Hypertension: Yes Psychiatric: Yes (ptsd) ?: Not Past Surgical History Other Surgery: Yes (knee, wrist, hernia repair) Social History Alcohol Use: Yes (LAST DRINK AT 1300 TODAY 10/07/16) Tobacco Use: Yes Substance Use: No Allergies-Medications (Allergen,Severity, Reaction): Coded Allergies: No Known Allergies (Unverified Adverse Reaction, Unknown, 10/17/17) Reported Meds & Prescriptions Reported Meds & Active Scripts Active Reported [cholesteral med] PO DAILY Hydrochlorothiazide 12.5 Mg Cap 12.5 Mg PO DAILY Amlodipine (Amlodipine Besylate) 2.5 Mg Tab 2.5 Mg PO DAILY Clonidine (Clonidine HCl) 0.1 Mg Tab 0.1 Mg PO HS Buspirone (Buspirone HCl) 15 Mg Tab 15 Mg PO DIRECTED Wellbutrin SR 12 HR (Bupropion HCl) 100 Mg Tab 100 Mg PO Q12HR Zoloft (Sertraline HCl) 100 Mg Tab 100 Mg PO DAILY Review of Systems Except as stated in HPI: all other systems reviewed are Neg Skin: Positive Other (Abrasion to right knee) Psychiatric: Positive: Anxiety, Depression, Suicidal Ideations, Substance Abuse Physical Exam Exam Limitations: Intoxication Narrative GENERAL: Well-developed, well-nourished, tearful female. Presenting in no acute distress. SKIN: Warm and dry. Superficial abrasion to right knee, bruising to bilateral arms, in different stages of healing. HEAD: Atraumatic. Normocephalic. EYES: Pupils equal and round. No scleral icterus. No injection or drainage. ENT: No nasal bleeding or discharge. Mucous membranes pink and moist. NECK: Trachea midline. No JVD. CARDIOVASCULAR: Regular rate and rhythm. RESPIRATORY: No accessory muscle use. Clear to auscultation. Breath sounds equal bilaterally. GASTROINTESTINAL: Abdomen soft, non-tender, nondistended. Hepatic and splenic margins not palpable. MUSCULOSKELETAL: Extremities without clubbing, cyanosis, or edema. No obvious deformities. NEUROLOGICAL: Awake and alert. No obvious cranial nerve deficits. Motor grossly within normal limits. Five out of 5 muscle strength in the arms and legs. Normal speech. PSYCHIATRIC: Depressed and anxious mood and affect; insight and judgment impaired. Data Data Last Documented VS Vital Signs Date Time Temp Pulse Resp B/P (MAP) Pulse Ox O2 Delivery O2 Flow Rate FiO2 10/17/17 19:37 98.6 106 20 163/94 (117) 96 Orders Orders Complete Blood Count With Diff (10/17/17 19:36) Comprehensive Metabolic Panel (10/17/17 19:36) Thyroid Stimulating Hormone (10/17/17 19:36) Urinalysis - C+S If Indicated (10/17/17 19:36) Ed Urine Pregnancytest Poc (10/17/17 19:36) Psych Screen (10/17/17 19:36) Lorazepam Inj (Ativan Inj) (10/17/17 19:45) Drug Screen, Random Urine (10/17/17 19:36) Alcohol (Ethanol) (10/17/17 19:36) Iv Access Insert/Monitor (10/17/17 19:36) Potassium Chloride (Kcl) (10/17/17 21:15) Labs Laboratory Tests Test 10/17/17 20:00 White Blood Count 14.2 TH/MM3 Red Blood Count 4.30 MIL/MM3 Hemoglobin 14.4 GM/DL Hematocrit 41.0 % Mean Corpuscular Volume 95.4 FL Mean Corpuscular Hemoglobin 33.6 PG Mean Corpuscular Hemoglobin Concent 35.2 % Red Cell Distribution Width 12.9 % Platelet Count 333 TH/MM3 Mean Platelet Volume 6.7 FL Neutrophils (%) (Auto) 73.2 % Lymphocytes (%) (Auto) 20.3 % Monocytes (%) (Auto) 5.8 % Eosinophils (%) (Auto) 0.3 % Basophils (%) (Auto) 0.4 % Neutrophils # (Auto) 10.4 TH/MM3 Lymphocytes # (Auto) 2.9 TH/MM3 Monocytes # (Auto) 0.8 TH/MM3 Eosinophils # (Auto) 0.0 TH/MM3 Basophils # (Auto) 0.1 TH/MM3 CBC Comment DIFF FINAL Differential Comment Urine Color YELLOW Urine Turbidity CLOUDY Urine pH 7.5 Urine Specific [place] 1.015 Urine Protein 100 mg/dL Urine Glucose (UA) NEG mg/dL Urine Ketones NEG mg/dL Urine Occult Blood SMALL Urine Nitrite NEG Urine Bilirubin NEG Urine Urobilinogen 2.0 MG/DL Urine Leukocyte Esterase NEG Urine RBC 6 /hpf Urine WBC 5 /hpf Urine Squamous Epithelial Cells 28 /hpf Urine Amorphous Sediment FEW Urine Bacteria OCC /hpf Urine Hyaline Casts 52 /lpf Urine Mucus FEW /lpf Microscopic Urinalysis Comment CULT NOT INDICATED Blood Urea Nitrogen 9 MG/DL Creatinine 0.73 MG/DL Random Glucose 105 MG/DL Total Protein 7.9 GM/DL Albumin 4.1 GM/DL Calcium Level 8.6 MG/DL Alkaline Phosphatase 84 U/L Aspartate Amino Transf (AST/SGOT) 41 U/L Alanine Aminotransferase (ALT/SGPT) 51 U/L Total Bilirubin 0.3 MG/DL Sodium Level 140 MEQ/L Potassium Level 3.2 MEQ/L Chloride Level 105 MEQ/L Carbon Dioxide Level 24.2 MEQ/L Anion Gap 11 MEQ/L Estimat Glomerular Filtration Rate 87 ML/MIN Thyroid Stimulating Hormone 3rd Gen 2.890 uIU/ML Urine Opiates Screen NEG Urine Barbiturates Screen NEG Urine Amphetamines Screen NEG Urine Benzodiazepines Screen NEG Urine Cocaine Screen NEG Urine Cannabinoids Screen NEG Ethyl Alcohol Level 257 MG/DL MDM Medical Decision Making Medical Screen Exam Complete: Yes Emergency Medical Condition: Yes Interpretation(s) Laboratory Tests Test 10/17/17 20:00 White Blood Count 14.2 TH/MM3 Red Blood Count 4.30 MIL/MM3 Hemoglobin 14.4 GM/DL Hematocrit 41.0 % Mean Corpuscular Volume 95.4 FL Mean Corpuscular Hemoglobin 33.6 PG Mean Corpuscular Hemoglobin Concent 35.2 % Red Cell Distribution Width 12.9 % Platelet Count 333 TH/MM3 Mean Platelet Volume 6.7 FL Neutrophils (%) (Auto) 73.2 % Lymphocytes (%) (Auto) 20.3 % Monocytes (%) (Auto) 5.8 % Eosinophils (%) (Auto) 0.3 % Basophils (%) (Auto) 0.4 % Neutrophils # (Auto) 10.4 TH/MM3 Lymphocytes # (Auto) 2.9 TH/MM3 Monocytes # (Auto) 0.8 TH/MM3 Eosinophils # (Auto) 0.0 TH/MM3 Basophils # (Auto) 0.1 TH/MM3 CBC Comment DIFF FINAL Differential Comment Urine Color YELLOW Urine Turbidity CLOUDY Urine pH 7.5 Urine Specific [place] 1.015 Urine Protein 100 mg/dL Urine Glucose (UA) NEG mg/dL Urine Ketones NEG mg/dL Urine Occult Blood SMALL Urine Nitrite NEG Urine Bilirubin NEG Urine Urobilinogen 2.0 MG/DL Urine Leukocyte Esterase NEG Urine RBC 6 /hpf Urine WBC 5 /hpf Urine Squamous Epithelial Cells 28 /hpf Urine Amorphous Sediment FEW Urine Bacteria OCC /hpf Urine Hyaline Casts 52 /lpf Urine Mucus FEW /lpf Microscopic Urinalysis Comment CULT NOT INDICATED Blood Urea Nitrogen 9 MG/DL Creatinine 0.73 MG/DL Random Glucose 105 MG/DL Total Protein 7.9 GM/DL Albumin 4.1 GM/DL Calcium Level 8.6 MG/DL Alkaline Phosphatase 84 U/L Aspartate Amino Transf (AST/SGOT) 41 U/L Alanine Aminotransferase (ALT/SGPT) 51 U/L Total Bilirubin 0.3 MG/DL Sodium Level 140 MEQ/L Potassium Level 3.2 MEQ/L Chloride Level 105 MEQ/L Carbon Dioxide Level 24.2 MEQ/L Anion Gap 11 MEQ/L Estimat Glomerular Filtration Rate 87 ML/MIN Thyroid Stimulating Hormone 3rd Gen 2.890 uIU/ML Urine Opiates Screen NEG Urine Barbiturates Screen NEG Urine Amphetamines Screen NEG Urine Benzodiazepines Screen NEG Urine Cocaine Screen NEG Urine Cannabinoids Screen NEG Ethyl Alcohol Level 257 MG/DL Vital Signs Date Time Temp Pulse Resp B/P (MAP) Pulse Ox O2 Delivery O2 Flow Rate FiO2 10/17/17 19:37 98.6 106 20 163/94 (117) 96 Vital Signs Date Time Temp Pulse Resp B/P (MAP) Pulse Ox O2 Delivery O2 Flow Rate FiO2 10/17/17 19:37 98.6 106 20 163/94 (117) 96 Differential Diagnosis Mood disorder versus substance abuse versus suicidal ideations versus depression versus anxiety versus metabolic abnormality versus withdrawal versus other Narrative Course Patient is a 46-year-old female presented to the emergency department under Smalls act for psychiatric evaluation due to suicidal ideations. Patient admits to drinking alcohol, this is a daily occurrence. She reports a history of depression and is tired of living like this. Mental health screening discussed with the patient. Psychiatric screen ordered. Labs reviewed, potassium 3.2 otherwise labs are unremarkable other than an alcohol level of 257. Oral potassium replacement ordered. Patient is medically cleared for psychiatric evaluation at this time. Diagnosis Primary Impression: Medical clearance for psychiatric admission Condition: Stable Courtney Bonner Oct 17, 2017 19:49
[2017-10-17 20:34] LABS: AUTOMATED NEUTROPHIL # 10.4 TH/MM3 (1.8-7.7); BASOPHIL # 0.1 TH/MM3 (0-0.2); BASOPHIL % 0.4 % (0.0-2.0); EOSINOPHIL % 0.3 % (0.0-4.0); HEMOGLOBIN 14.4 GM/DL (11.6-15.3); LYMPH % 20.3 % (9.0-44.0); LYMPHOCYTE # 2.9 TH/MM3 (1.0-4.8); MEAN CELL VOLUME 95.4 FL (80.0-100.0); MEAN CORPUSCULAR HEMOGLOBIN 33.6 PG (27.0-34.0); MEAN CORPUSCULAR HGB CONC 35.2 % (32.0-36.0); MEAN PLATELET VOLUME 6.7 FL (7.0-11.0); MONO % 5.8 % (0.0-8.0); MONOCYTE # 0.8 TH/MM3 (0-0.9); NEUT % 73.2 % (16.0-70.0); PLATELET COUNT 333 TH/MM3 (150-450); RED CELL DISTRIBUTION WIDTH 12.9 % (11.6-17.2); WHITE BLOOD COUNT 14.2 TH/MM3 (4.0-11.0)
[2017-10-17 20:45] LABS: AMORPHOUS SEDIMENT, URINE FEW; BACTERIA, URINE OCC /hpf; BILIRUBIN, URINE NEG (NEG); BLOOD, URINE SMALL (NEG); GLUCOSE,URINE NEG (NEG); HYALINE CAST, URINE 52 /lpf (RARE); KETONE, URINE NEG (NEG); MUCUS URINE FEW /lpf (OCC); NITRITE,URINE NEG (NEG); PH, URINE 7.5 (5.0-8.5); SQUAMOUS EPITHELIAL CELL URINE 28 /hpf (0-5); URINE COLOR YELLOW (YELLW/STRAW); URINE LEUKOCYTE ESTERASE NEG (NEG)
[2017-10-17 20:56] LABS: ALT (GPT) 51 U/L (10-53)
[2017-10-17 21:06] LABS: ALKALINE PHOSPHATASE 84 U/L (45-117); TOTAL BILIRUBIN ADULT 0.3 MG/DL (0.2-1.0); TOTAL PROTEIN 7.9 GM/DL (6.4-8.2)
[2017-10-17 21:09] LABS: ALBUMIN 4.1 GM/DL (3.4-5.0); AST (GOT) 41 U/L (15-37); BICARBONATE 24.2 MEQ/L (21.0-32.0); BLOOD UREA NITROGEN 9 MG/DL (7-18); CALCIUM 8.6 MG/DL (8.5-10.1); CHLORIDE 105 MEQ/L (98-107); CREATININE 0.73 MG/DL (0.50-1.00); GLOMERULAR FILTRATION RATE 87 ML/MIN (>89); GLUCOSE,RANDOM 105 MG/DL (74-106); SODIUM (NA) 140 MEQ/L (136-145)
[2017-10-17] MEDS ORDERED: POTASSIUM CHLORIDE 20 MEQ CONTROLLED RELEASE TAB PO ONE (21:15)
[2017-10-17 22:49] VITALS: BP 162/76; PULSE 117; RESP 18; TEMP 99.2; O2SAT 96
[2017-10-18 06:45] VITALS: BP 160/92; PULSE 110; RESP 17; TEMP 97.9
--- NOTE | 2017-10-18 14:10 | PD ---
History of Present Illness Chief Complaint: Psychiatric Symptoms Time Seen by Provider: 13:15 Travel History International Travel<30 Days: No Contact w/Intl Traveler<30days: No Known affected area: No Legal Status Legal Status: Smalls Act Smalls Act Signed By: Andre Holliday History of Present Illness: History of Present Illness HPI Patient is a 46-year-old single female with history of PTSD, depression, alcohol abuse, who presents to the emergency department under a Smalls act initiated by law enforcement. The police were called by the patient's mother after the mother found her intoxicated and she allegedly made comments to her that she wanted to . Patient admits to drinking all morning and her blood alcohol level on arrival to the ED was 257. She reports she had been sober for approximately 4 months and has started to drink for approximately 1 week. The patient has been monitored here in secure environment and was allowed to sober up clinically. She presented no suicidality and no behavioral concerns. Electronic medical record is reviewed. The patient was evaluated by Dr. Whitten one of our psychiatrists in September 2016 when she was admitted for alcohol related issues. The patient is seen. She is alert, oriented female who is dressed in [facility] and is maintaining basic hygiene. She is clinically sober at this time. She is cooperative with this evaluation. Her speech is clear, logical and goal-directed. There is no evidence of any psychosis, no mariluz or hypomania. The patient is very remorseful this morning about her relapse and attributes to multiple stressors including having recently moved on her own. She denies any suicidal or homicidal ideation, intent or plan. She is future oriented and has an appointment with his therapist Ms. Amanda Moore next Sunday. She is requesting to be discharged at this time. [facility] Past Medical History Anxiety: Yes Depression: Yes High Cholesterol: Yes Endocrine: No Genitourinary: No Hypertension: Yes Psychiatric: Yes (ptsd) ?: Not Past Surgical History Other Surgery: Yes (knee, wrist, hernia repair) Psychiatric History Psychiatric History Hx Psychiatric Treatment: One previous hospitalization in 2014. Currently follows up with Pablo Sanabria for outpatient medication management as well as individual counseling. Her outpatient therapist is Ms. Amanda Moore. History of Inpatient Treatment: Yes Guns or firearms in home: No Social History Single, unemployed female. Recently moved to her own apartment. Hx Alcohol Use: Yes (daily) Hx Tobacco Use: Yes Hx Substance Use: Yes (etoh) Substance Use Type: Alcohol Hx of Substance Use Treatment: No Family Psychiatric History Negative Allergies-Medications (Allergen,Severity, Reaction): Coded Allergies: No Known Allergies (Unverified Adverse Reaction, Unknown, 10/17/17) Reported Meds & Prescriptions Reported Meds & Active Scripts Active Reported [cholesteral med] PO DAILY Hydrochlorothiazide 12.5 Mg Cap 12.5 Mg PO DAILY Amlodipine (Amlodipine Besylate) 2.5 Mg Tab 2.5 Mg PO DAILY Clonidine (Clonidine HCl) 0.1 Mg Tab 0.1 Mg PO HS Buspirone (Buspirone HCl) 15 Mg Tab 15 Mg PO DIRECTED Wellbutrin SR 12 HR (Bupropion HCl) 100 Mg Tab 100 Mg PO Q12HR Zoloft (Sertraline HCl) 100 Mg Tab 100 Mg PO DAILY Review of Systems Psychiatric: DENIES: Anxiety, Confusion, Mood changes, Depression, Hallucinations, Agitation, Suicidal Ideation, Homicidal Ideation, Delusions Except as stated in HPI: all other systems reviewed are Neg Mental Status Examination Appearance: Appropriate (dressed in hospital attire) Consciousness: Alert Orientation: x4 Motor Activity: Normal gait Speech: Unremarkable Language: Adequate Fund of Knowledge: Adequate Attention and Concentration: Adequate Memory: Unremarkable Mood: Appropriate Affect: Appropriate Thought Process & Associations: Intact, Logical, Goal directed Thought Content: Appropriate Hallucination Type: None Delusion Type: None Suicidal Ideation: No Suicidal Plan: No Suicidal Intention: No Homicidal Ideation: No Homicidal Plan: No Homicidal Intention: No Insight: Fair Judgment: Impulsive MDM Medical Decision Making Medical Record Reviewed: Yes Assessment/Plan 46-year-old single female with history of PTSD, depression, alcohol abuse who in context of alcohol intoxication was placed under a Smalls act after her mother found her intoxicated in her home. The patient allegedly stated to her mother that she wanted to . Her blood alcohol level was 257 on arrival to the ED. The patient was allowed to sober up clinically in safe environment. Once clinically sober and patient denies any suicidal or homicidal ideation intent or plan. She is future oriented and wants to be released. She is connected with outpatient therapist and has an upcoming appointment. At this time she does not meet criteria for Smalls act. The Smalls act is lifted. Psychiatrically clear for discharge from the ED. Orders Orders Complete Blood Count With Diff (10/17/17 19:36) Comprehensive Metabolic Panel (10/17/17 19:36) Thyroid Stimulating Hormone (10/17/17 19:36) Urinalysis - C+S If Indicated (10/17/17 19:36) Ed Urine Pregnancytest Poc (10/17/17 19:36) Psych Screen (10/17/17 19:36) Lorazepam Inj (Ativan Inj) (10/17/17 19:45) Drug Screen, Random Urine (10/17/17 19:36) Alcohol (Ethanol) (10/17/17 19:36) Iv Access Insert/Monitor (10/17/17 19:36) Potassium Chloride (Kcl) (10/17/17 21:15) Diet Regular Basic (10/18/17 Breakfast) Diet Regular Basic (10/18/17 Lunch) Results Vital Signs Date Time Temp Pulse Resp B/P (MAP) Pulse Ox O2 Delivery O2 Flow Rate FiO2 10/18/17 06:45 97.9 110 17 160/92 (114) Room Air 10/17/17 22:49 99.2 117 18 162/76 (104) 96 Room Air 10/17/17 19:37 98.6 106 20 163/94 (117) 96 Laboratory Tests Test 10/17/17 20:00 White Blood Count 14.2 Red Blood Count 4.30 Hemoglobin 14.4 Hematocrit 41.0 Mean Corpuscular Volume 95.4 Mean Corpuscular Hemoglobin 33.6 Mean Corpuscular Hemoglobin Concent 35.2 Red Cell Distribution Width 12.9 Platelet Count 333 Mean Platelet Volume 6.7 Neutrophils (%) (Auto) 73.2 Lymphocytes (%) (Auto) 20.3 Monocytes (%) (Auto) 5.8 Eosinophils (%) (Auto) 0.3 Basophils (%) (Auto) 0.4 Neutrophils # (Auto) 10.4 Lymphocytes # (Auto) 2.9 Monocytes # (Auto) 0.8 Eosinophils # (Auto) 0.0 Basophils # (Auto) 0.1 CBC Comment DIFF FINAL Differential Comment Urine Color YELLOW Urine Turbidity CLOUDY Urine pH 7.5 Urine Specific [place] 1.015 Urine Protein 100 Urine Glucose (UA) NEG Urine Ketones NEG Urine Occult Blood SMALL Urine Nitrite NEG Urine Bilirubin NEG Urine Urobilinogen 2.0 Urine Leukocyte Esterase NEG Urine RBC 6 Urine WBC 5 Urine Squamous Epithelial Cells 28 Urine Amorphous Sediment FEW Urine Bacteria OCC Urine Hyaline Casts 52 Urine Mucus FEW Microscopic Urinalysis Comment CULT NOT INDICATED Blood Urea Nitrogen 9 Creatinine 0.73 Random Glucose 105 Total Protein 7.9 Albumin 4.1 Calcium Level 8.6 Alkaline Phosphatase 84 Aspartate Amino Transf (AST/SGOT) 41 Alanine Aminotransferase (ALT/SGPT) 51 Total Bilirubin 0.3 Sodium Level 140 Potassium Level 3.2 Chloride Level 105 Carbon Dioxide Level 24.2 Anion Gap 11 Estimat Glomerular Filtration Rate 87 Thyroid Stimulating Hormone 3rd Gen 2.890 Urine Opiates Screen NEG Urine Barbiturates Screen NEG Urine Amphetamines Screen NEG Urine Benzodiazepines Screen NEG Urine Cocaine Screen NEG Urine Cannabinoids Screen NEG Ethyl Alcohol Level 257 Diagnosis Primary Impression: Alcohol abuse with alcohol-induced mood disorder Psychiatrically Cleared: Yes Med/ Other Pt Specific Info: No Change to Meds Disposition: 01 DISCHARGE HOME Condition: Stable Maria Fernanda Ceron Oct 18, 2017 14:10
--- NOTE | 2017-10-18 14:23 | PD ---
Physical Exam Time Seen by Provider: 14:23 Data Data Last Documented VS Vital Signs Date Time Temp Pulse Resp B/P (MAP) Pulse Ox O2 Delivery O2 Flow Rate FiO2 10/18/17 06:45 97.9 110 17 160/92 (114) Room Air 10/17/17 22:49 96 Orders Orders Complete Blood Count With Diff (10/17/17 19:36) Comprehensive Metabolic Panel (10/17/17 19:36) Thyroid Stimulating Hormone (10/17/17 19:36) Urinalysis - C+S If Indicated (10/17/17 19:36) Ed Urine Pregnancytest Poc (10/17/17 19:36) Psych Screen (10/17/17 19:36) Lorazepam Inj (Ativan Inj) (10/17/17 19:45) Drug Screen, Random Urine (10/17/17 19:36) Alcohol (Ethanol) (10/17/17 19:36) Iv Access Insert/Monitor (10/17/17 19:36) Potassium Chloride (Kcl) (10/17/17 21:15) Diet Regular Basic (10/18/17 Breakfast) Diet Regular Basic (10/18/17 Lunch) Ed Discharge Order (10/18/17 14:22) Labs Laboratory Tests Test 10/17/17 20:00 White Blood Count 14.2 TH/MM3 Red Blood Count 4.30 MIL/MM3 Hemoglobin 14.4 GM/DL Hematocrit 41.0 % Mean Corpuscular Volume 95.4 FL Mean Corpuscular Hemoglobin 33.6 PG Mean Corpuscular Hemoglobin Concent 35.2 % Red Cell Distribution Width 12.9 % Platelet Count 333 TH/MM3 Mean Platelet Volume 6.7 FL Neutrophils (%) (Auto) 73.2 % Lymphocytes (%) (Auto) 20.3 % Monocytes (%) (Auto) 5.8 % Eosinophils (%) (Auto) 0.3 % Basophils (%) (Auto) 0.4 % Neutrophils # (Auto) 10.4 TH/MM3 Lymphocytes # (Auto) 2.9 TH/MM3 Monocytes # (Auto) 0.8 TH/MM3 Eosinophils # (Auto) 0.0 TH/MM3 Basophils # (Auto) 0.1 TH/MM3 CBC Comment DIFF FINAL Differential Comment Urine Color YELLOW Urine Turbidity CLOUDY Urine pH 7.5 Urine Specific [place] 1.015 Urine Protein 100 mg/dL Urine Glucose (UA) NEG mg/dL Urine Ketones NEG mg/dL Urine Occult Blood SMALL Urine Nitrite NEG Urine Bilirubin NEG Urine Urobilinogen 2.0 MG/DL Urine Leukocyte Esterase NEG Urine RBC 6 /hpf Urine WBC 5 /hpf Urine Squamous Epithelial Cells 28 /hpf Urine Amorphous Sediment FEW Urine Bacteria OCC /hpf Urine Hyaline Casts 52 /lpf Urine Mucus FEW /lpf Microscopic Urinalysis Comment CULT NOT INDICATED Blood Urea Nitrogen 9 MG/DL Creatinine 0.73 MG/DL Random Glucose 105 MG/DL Total Protein 7.9 GM/DL Albumin 4.1 GM/DL Calcium Level 8.6 MG/DL Alkaline Phosphatase 84 U/L Aspartate Amino Transf (AST/SGOT) 41 U/L Alanine Aminotransferase (ALT/SGPT) 51 U/L Total Bilirubin 0.3 MG/DL Sodium Level 140 MEQ/L Potassium Level 3.2 MEQ/L Chloride Level 105 MEQ/L Carbon Dioxide Level 24.2 MEQ/L Anion Gap 11 MEQ/L Estimat Glomerular Filtration Rate 87 ML/MIN Thyroid Stimulating Hormone 3rd Gen 2.890 uIU/ML Urine Opiates Screen NEG Urine Barbiturates Screen NEG Urine Amphetamines Screen NEG Urine Benzodiazepines Screen NEG Urine Cocaine Screen NEG Urine Cannabinoids Screen NEG Ethyl Alcohol Level 257 MG/DL [facility] Medical Record Reviewed: Yes Supervised Visit with TOMMY: No Narrative Course This patient has been cleared by psychiatry. She has no medical issues that would warrant further hospitalization. She is stable for discharge. Diagnosis Primary Impression: Alcohol abuse with alcohol-induced mood disorder Patient Instructions: General Instructions, Mood Disorders (ED), Abuse of Alcohol (ED), Suicide Prevention for Adults (ED) Departure Forms: Tests/Procedures Additional Instruction: Follow up with Artur Sanabria or private counselor/psychiatrist. Follow up with [facility] or primary care clinic. Return to ED for any worsening. Disposition: 01 DISCHARGE HOME Condition: Stable Chandrakant Kim Oct 18, 2017 14:23
== END 2017-10-18 14:58 | disposition home or self-care (01) ==
LOC: NEPD 19:19 → NEPJ 10-18 14:58
DX: F10.14 Alcohol abuse with alcohol-induced mood disorder (principal); Y90.8 Blood alcohol level of 240 mg/100 ml or more; E78.00 Pure hypercholesterolemia, unspecified; I10 Essential (primary) hypertension; F43.10 Post-traumatic stress disorder, unspecified; F32.9 Major depressive disorder, single episode, unspecified; Z72.0 Tobacco use; Z79.899 Other long term (current) drug therapy
CPT/HCPCS: 80053; 80307; 81001; 84443; 84703; 85025; 96374; 99284; J2060

== ENCOUNTER 2017-11-21 16:35 | Inpatient (IN) | payer BC, OTHER ==
[~2017-11-21] VITALS: Ht 152.4 cm; Wt 62.4 kg
[~2017-11-21 16:35] MED LIST changes: +AMLO2.5T PO; +BUPR100CR PO; +BUSP15TA PO; +CLON0.1T PO; +HYDR12.57 PO; -MULT1TAB84 PO; -NICO14DI T-DERMAL; -NICO21DI2 T-DERMAL; -NICO7DIS2 T-DERMAL; -VITA100T2 PO; +ZOLO100T PO; +cholesteral med PO
[2017-11-21 17:00] VITALS: BP 180/94; PULSE 133; RESP 18; TEMP 98.5; O2SAT 99
[2017-11-21] MEDS ORDERED: hydrOXYzine HCL 50 MG TAB PO PRN (18:15)
[2017-11-21] MEDS ORDERED: diphenhydrAMINE HCL 50 MG/ML VIAL - HS PRN IM (18:15)
[2017-11-21] MEDS ORDERED: ALUMINUM/MAGNESIUM/SIMETH 30 ML CUP PO PRN (18:15)
[2017-11-21] MEDS ORDERED: MAGNESIUM HYDROXIDE SUSP 30 ML CUP PO PRN (18:15)
[2017-11-21] MEDS ORDERED: ACETAMINOPHEN 325 MG TAB PO PRN (18:15)
[2017-11-21] MEDS ORDERED: diphenhydrAMINE HCL 50 MG CAP - HS PRN PO (18:15)
[2017-11-21] MEDS ORDERED: REMOVE OLD NICOTINE PATCH T-DERMAL SCH (21:00)
[2017-11-21] MEDS ORDERED: cloNIDine HCL 0.1 MG TAB PO SCH (21:15)
--- NOTE | 2017-11-21 21:37 | PD.CONS ---
HPI Service [facility] Consult Requested By Dr. Garsia Reason for Consult Medical management Primary Care Physician No Primary Care Physician Diagnoses: History of Present Illness 47-year-old female with a history of EtOH abuse, PTSD, anxiety, depression, hypertension and hyperlipidemia was sent from [facility] to the inpatient psych unit for depression and alcohol abuse. Patient states she went to the [facility] to get help because of her alcoholism and the Smalls acted her for suicidal ideations and transferred her to [facility] when stable. [facility] was consulted for medical management of chronic conditions. She states she does drink daily heavily and her last drink was 2 days ago. She states they treated her for a UTI with 2 doses of antibiotics. She denies any dysuria or urinary frequency. She denies any chest pain, shortness of breath, fever or chills. Review of Systems Except as stated in HPI: all other systems reviewed are Neg Past Family Social History Allergies: Coded Allergies: No Known Allergies (Unverified Allergy, Unknown, 11/21/17) Past Medical History Anxiety Depression PTSD Hypertension Hyperlipidemia EtOH abuse Past Surgical History Patient denies any surgical history Reported Medications Reported Meds & Active Scripts Active Reported [cholesteral med] PO DAILY Hydrochlorothiazide 12.5 Mg Cap 12.5 Mg PO DAILY Amlodipine (Amlodipine Besylate) 2.5 Mg Tab 2.5 Mg PO DAILY Clonidine (Clonidine HCl) 0.1 Mg Tab 0.1 Mg PO HS Buspirone (Buspirone HCl) 15 Mg Tab 15 Mg PO DIRECTED Wellbutrin SR 12 HR (Bupropion HCl) 100 Mg Tab 100 Mg PO Q12HR Zoloft (Sertraline HCl) 100 Mg Tab 100 Mg PO DAILY Active Ordered Medications Current Medications Medications (Trade) Dose Ordered Sig/Igor Route Start Time Stop Time Status Last Admin (Atarax) 50 mg Q6H PRN PO 11/21/17 18:15 Future Hold (Benadryl) 50 mg HS PRN PO 11/21/17 18:15 Future Hold (Benadryl Inj) 50 mg HS PRN IM 11/21/17 18:15 Future Hold (Tylenol) 650 mg Q4H PRN PO 11/21/17 18:15 (Milk Of Magnesia Liq) 30 ml DAILY PRN PO 11/21/17 18:15 (Mag-Al Plus Susp Liq) 30 ml Q6H PRN PO 11/21/17 18:15 (Habitrol 21 Mg Patch.24 Hr) 1 patch DAILY T-DERMAL 11/22/17 09:00 Miscellaneous Information 1 HS T-DERMAL 11/21/17 21:00 11/21/17 20:31 (Norvasc) 2.5 mg DAILY PO 11/22/17 09:00 UNV (Catapres) 0.1 mg HS PO 11/21/17 21:15 UNV (Microzide) 12.5 mg DAILY PO 11/22/17 09:00 UNV Family History Patient denies any family history no heart disease or cancer. Social History Tobacco use: 1 PPD Alcohol use: Daily drinker Physical Exam Vital Signs Vital Signs Date Time Temp Pulse Resp B/P (MAP) Pulse Ox O2 Delivery O2 Flow Rate FiO2 11/21/17 17:00 98.5 133 18 180/94 (122) 99 Physical Exam GENERAL: This is a well-nourished, well-developed patient, in no apparent distress. SKIN: No rashes, ecchymoses or lesions. Cool and dry. HEAD: Atraumatic. Normocephalic. EYES: Pupils equal round and reactive. ENT: Nose without bleeding, purulent drainage or septal hematoma. Airway patent. CARDIOVASCULAR: Regular rate and rhythm without murmurs, gallops, or rubs. RESPIRATORY: Clear to auscultation. Breath sounds equal bilaterally. No wheezes , rales, or rhonchi. GASTROINTESTINAL: Abdomen soft, non-tender, nondistended. MUSCULOSKELETAL: Extremities without clubbing, cyanosis, or edema. No calf tenderness. NEUROLOGICAL: Awake and alert. Motor and sensory grossly within normal limits. Normal speech. Assessment and Plan Problem List: (1) HTN (hypertension) ICD Code: I10 - Essential (primary) hypertension (2) Hyperlipidemia ICD Code: E78.5 - Hyperlipidemia, unspecified (3) Tobacco abuse ICD Code: Z72.0 - Tobacco use Status: Acute (4) Alcohol abuse with alcohol-induced mood disorder ICD Code: F10.14 - Alcohol abuse with alcohol-induced mood disorder Status: Acute Assessment and Plan 47-year-old female with a history of EtOH abuse, PTSD, anxiety, depression, hypertension and hyperlipidemia was sent from [facility] to the inpatient psych unit for depression and alcohol abuse. Depression disorder Managed by psychiatry Hypertension, chronic, elevated Resume home medications clonidine at bedtime, HCTZ and amlodipine in a.m. Monitor vitals Adjust medications as needed Hyperlipidemia Patient is unsure what medication she takes Reorder medication if patient remembers Alcohol abuse/tobacco abuse Withdrawal precautions Seizure precautions Thiamine and multivitamin daily UTI, history of at [facility], currently asymptomatic Patient was treated with 2 doses of Macrobid We'll continue to monitor for symptoms, will get UA if symptoms develop DVT prophylaxis: Encourage ambulation Discussed Condition With Patient and RN Naya Olivera Nov 21, 2017 21:37
[2017-11-22] MEDS ORDERED: CITA20TA4 PO (01:44)
[2017-11-22] MEDS ORDERED: VITA100T54 PO (01:44)
[2017-11-22] MEDS ORDERED: LORA-650 PO (01:44)
[2017-11-22] MEDS ORDERED: CLAR30CA PO (01:44)
[2017-11-22] MEDS ORDERED: TRAZ100T10 PO (01:44)
[2017-11-22] MEDS ORDERED: CITA40TA4 PO (01:44)
[2017-11-22] MEDS ORDERED: BUSP15TA PO (01:44)
[2017-11-22] MEDS ORDERED: ACAM1TAB5 PO (01:44)
[2017-11-22] MEDS ORDERED: AMLO10TA2 PO (01:44)
[2017-11-22] MEDS ORDERED: CLON0.1T PO (01:44)
[2017-11-22] MEDS ORDERED: ATOR10TA15 PO (01:44)
[2017-11-22] MEDS ORDERED: BUPR150CR PO (01:44)
[2017-11-22] MEDS ORDERED: ZOLO25TA PO (01:44)
[2017-11-22 06:09] VITALS: BP 135/82; PULSE 85; RESP 18; TEMP 98.3; O2SAT 96
[2017-11-22 07:22] LABS: AUTOMATED NEUTROPHIL # 2.6 TH/MM3 (1.8-7.7); BASOPHIL % 0.5 % (0.0-2.0); EOSINOPHIL # 0.2 TH/MM3 (0-0.4); HEMATOCRIT 39.6 % (35.0-46.0); LYMPH % 46.6 % (9.0-44.0); LYMPHOCYTE # 2.9 TH/MM3 (1.0-4.8); MEAN CORPUSCULAR HGB CONC 35.4 % (32.0-36.0); MEAN PLATELET VOLUME 7.2 FL (7.0-11.0); MONO % 8.1 % (0.0-8.0); MONOCYTE # 0.5 TH/MM3 (0-0.9); NEUT % 41.8 % (16.0-70.0); PLATELET COUNT 298 TH/MM3 (150-450); RED BLOOD COUNT 4.12 MIL/MM3 (4.00-5.30); RED CELL DISTRIBUTION WIDTH 13.1 % (11.6-17.2); WHITE BLOOD COUNT 6.2 TH/MM3 (4.0-11.0)
[2017-11-22 07:43] LABS: ALBUMIN 3.5 GM/DL (3.4-5.0); ALT (GPT) 41 U/L (10-53); AST (GOT) 23 U/L (15-37); BICARBONATE 28.1 MEQ/L (21.0-32.0); BLOOD UREA NITROGEN 9 MG/DL (7-18); CALCIUM 8.9 MG/DL (8.5-10.1); CHLORIDE 103 MEQ/L (98-107); CREATININE 0.59 MG/DL (0.50-1.00); GLOMERULAR FILTRATION RATE 110 ML/MIN (>89); GLUCOSE,RANDOM 103 MG/DL (74-106); SODIUM (NA) 140 MEQ/L (136-145)
[2017-11-22 07:45] LABS: ALKALINE PHOSPHATASE 70 U/L (45-117); TOTAL BILIRUBIN ADULT 0.6 MG/DL (0.2-1.0); TOTAL PROTEIN 6.4 GM/DL (6.4-8.2)
[2017-11-22] MEDS ORDERED: MULTIVITAMINS/MINERALS THERAPEUTIC TAB PO SCH (09:00)
[2017-11-22] MEDS ORDERED: amLODIPine BESYLATE 5 MG TAB PO SCH (09:00)
[2017-11-22] MEDS ORDERED: NICOTINE 21 MG/24 HR PATCH T-DERMAL SCH (09:00)
[2017-11-22] MEDS ORDERED: HYDROCHLOROTHIAZIDE 12.5 MG CAP PO SCH (09:00)
[2017-11-22] MEDS ORDERED: THIAMINE HCL 100 MG TAB PO SCH (09:00)
[2017-11-22] MEDS ORDERED: POTASSIUM CHLORIDE 20 MEQ CONTROLLED RELEASE TAB PO ONE (09:15)
--- NOTE | 2017-11-22 09:33 | MH ---
cc: Rob Acosta MD DATE OF ADMISSION: 11/21/2017 ADMITTING DIAGNOSIS: 1. Alcohol dependence, F10.20 LEGAL STATUS: The patient is capacitated to consent for admission and for medication/treatment. Voluntary status. HISTORY OF PRESENT ILLNESS: Ms. Horton is a 47-year-old female with reported history of depression, anxiety and alcohol dependence, who presents in transfer from [facility] under a Smalls Act. Documentation from [facility] reviewed. Smalls Act reviewed. Reviewing our electronic medical record, I note that the patient was seen on 10/17 by nurse practitioner Osmany, when she was apparently Smalls Acted after having been found by her mother in an intoxicated state and making comments about wanting to . The Smalls Act was lifted at that time. Patient seen and examined with the nurse. Chart reviewed. Case discussed with nursing staff. On my examination today, the patient says that she feels that she was mislead at outside hospital. She says that her friend took her to [facility] for detox and was not seeking general mental health treatment. She denies cutting herself as alleged in transfer documentation (nor can I see any sign of evident self-injury ), but she does admit to occasional nonsuicidal self injurious behavior such as slapping herself. She denies any suicidal or homicidal ideation, intent or plan on direct questioning and contracts for safety. She says that she wants to live for her parents, noting that her father is sick with heart disease, as well as her friends. She is quite future oriented. She denies any urge to self injure presently. She denies any homicidal ideation. I can elicit no depressive or hypomanic/manic symptoms in this patient at this time. She denies any audiovisual hallucinations. I can elicit no delusional beliefs such as ideas of reference, paranoia or thought insertion/withdrawal. She does have a traumatic history and describes some avoidance but denies any nightmares or hyperarousal. The remainder of the psychiatric ROS is negative. The patient has no acute physical complaints. No complaints of withdrawal. She is requesting discharge from the inpatient unit today. With the patient's permission I obtained collateral information from her father Semaj Horton at [phone]. He has no concerns about the patient being of harm to self or others at this point and notes that her main issue is to do with drinking. He notes "I don't think that sitting in a hospital is gonna help her". I have recommended that he secure the patient's home environment of all means of harm to self or others, including but not limited to guns, knives and medications. I have counseled him regarding the mechanisms in place to have the patient brought back to the emergency room for further psychiatric evaluation including Smalls Act and ex parte, as well as [place] Act. With the patient's permission I tried to obtain collateral information from her friend who brought her into [facility], Ludy Doan at [phone]. I called this number but it kept ringing and there was no opportunity to leave a voicemail. PAST PSYCHIATRIC HISTORY: The patient reports a history of depression and anxiety. She reportedly receives her psychotropic medications from her general practitioner. She does have a psychotherapist through [facility]. She denies a history of general psychiatric admissions but was at [facility] for alcohol dependance treatment for 20 days. She denies a history of suicide attempts. She does endorse a history of nonsuicidal self injurious behavior as noted above, chiefly while intoxicated. She denies any history of violent behavior. FAMILY HISTORY: The patient denies any family history of mental illness. She does note that her maternal grandfather was an alcoholic. No reported family history of suicide. CHEMICAL DEPENDENCY HISTORY: The patient reports that she is an alcoholic. She says that she relapsed shortly after discharge from [facility] a few days ago. Her longest sober time is a year. She reports that she started drinking heavily following the of her boyfriend in 2005. She does endorse a history of benzodiazepine use but denies any other substance use presently. SOCIAL HISTORY: The patient lives alone. She has 3 years of college and studied graphic illustration and also [employer]. 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 She is . She was recently from her boyfriend. She denies any history. Denies any history of legal problems besides some DUIs. Denies any history of violent crime. Denies any access to guns or firearms. She has no children. She is Mandaeism. PAST MEDICAL HISTORY: Hypertension. MEDICATIONS: Hydrochlorothiazide, amlodipine, statin, BuSpar, Zoloft, Wellbutrin, Trazodone, Clonidine. Reports good adherence with these medications. ALLERGIES: NO KNOWN ALLERGIES. REVIEW OF SYSTEMS: Except as noted in the history of present illness, this is negative. PHYSICAL EXAMINATION: VITAL SIGNS: Temperature 98.3, pulse 85, respirations 18, blood pressure 135/82, pulse oximetry 96% on room air. Physical examination was completed by outside hospital ED provider. On my examination today, the patient appears to be in no acute physical distress. No motor abnormality is noted. No signs of intoxication or withdrawal noted. LABS REVIEWED: CBC is unremarkable. CMP reveals mild hypokalemia. Liver function is within normal limits. Toxicology at outside hospital was negative, although alcohol level was elevated at 246. MENTAL STATUS EXAMINATION: The patient is in hospital attire. She is fairly well-groomed and maintaining basic hygiene. She is awake and alert, and oriented x 4. No evidence of delirium. No motor abnormality is noted. Steady gait and station. Speech is within normal limits for rate, tone and volume. Language and fund of knowledge average. Focus and concentration intact. Memory grossly intact on clinical exam. Mood is fair and affect full and reactive. Thought process is linear. No loosening of associations. No delusional material elicited. She denies audiovisual hallucinations and does not appear internally stimulated. She denies suicidal or homicidal ideation, intent or plan on direct questioning and contracts for safety. Insight and judgment are fair. ASSESSMENT AND PLAN: This is a 47-year-old female with psychiatric history as detailed above, who presents in transfer from outside hospital under a Smalls Act. On my examination today, the patient denies any suicidal or homicidal ideation. There is no evidence of any severely unstable mental illness as defined under the Smalls Act in this patient at this time. There is no evidence of any self care deficit. I have obtained reassuring collateral information from the patient's father. Synthesizing this information and based on the available evidence, I press box custodian that the patient does not presently meet the Smalls Act criteria. Her mental health issues appear to be primarily substance related. I have lifted the Smalls Act. The patient is requesting discharge from the psychiatric hospital today and I have no basis to retain her over her objection. I have recommended that she followup with outpatient provider. I have supported her in her desire for sobriety from alcohol. I have counseled the patient regarding warning signs for need to return to the psychiatric emergency room as part of a general safety plan. I have provided no prescriptions on discharge as the patient has an adequate supply of medications at home. This note serves also as my discharge summary. MD SINDHU Naylor/TL , 08:31 AM , 09:32 AM MTDD
--- NOTE | 2017-11-22 12:08 | HHI.PR ---
Subjective Remarks The patient is ambulating in the hallways. She appears in not acute distress. Says she does not have any fevers no chills no nausea. No urinary complaints. Since she has been treating for UTI. No chest pain or shortness of breath. Objective Vitals Vital Signs Date Time Temp Pulse Resp B/P (MAP) Pulse Ox O2 Delivery O2 Flow Rate FiO2 11/22/17 06:09 98.3 85 18 135/82 (99) 96 11/21/17 17:00 98.5 133 18 180/94 (122) 99 Result Diagram: 11/22/1762211/22/17622 Objective Remarks GENERAL: This is a well-nourished, well-developed patient, in no apparent distress. CARDIOVASCULAR: Regular rate and rhythm without murmurs, gallops, or rubs. RESPIRATORY: Clear to auscultation. Breath sounds equal bilaterally. No wheezes , rales, or rhonchi. GASTROINTESTINAL: Abdomen soft, non-tender, nondistended. MUSCULOSKELETAL: Extremities without clubbing, cyanosis, or edema. No calf tenderness. NEUROLOGICAL: Awake and alert. Motor and sensory grossly within normal limits. Normal speech. A/P Problem List: (1) HTN (hypertension) ICD Code: I10 - Essential (primary) hypertension (2) Hyperlipidemia ICD Code: E78.5 - Hyperlipidemia, unspecified (3) Tobacco abuse ICD Code: Z72.0 - Tobacco use Status: Acute (4) Alcohol abuse with alcohol-induced mood disorder ICD Code: F10.14 - Alcohol abuse with alcohol-induced mood disorder Status: Acute Assessment and Plan 47-year-old female with a history of EtOH abuse, PTSD, anxiety, depression, hypertension and hyperlipidemia was sent from [facility] to the inpatient psych unit for depression and alcohol abuse. Depression disorder Managed by psychiatry Hypertension, chronic, elevated on admission Resume home medications clonidine at bedtime, HCTZ and amlodipine in a.m. Monitor vitals Adjust medications as needed Blood pressure is better controlled monitor. Hyperlipidemia Patient is unsure what medication she takes Reorder medication if patient remembers Alcohol abuse/tobacco abuse Withdrawal precautions Seizure precautions Thiamine and multivitamin daily UTI, history of at [facility], currently asymptomatic Patient was treated with 2 doses of Macrobid We'll continue to monitor for symptoms, will get UA if symptoms develop DVT prophylaxis: Encourage ambulation Discussed Condition With Patient and nurse Appears stable at this time. Continue to monitor will sign off at this time will consult hospice as needed Maria Dyer MD Nov 22, 2017 12:08
== END 2017-11-22 13:00 | disposition home or self-care (01) | DRG 897 ==
LOC: H270 16:50
PROVIDERS: ADMIT Psychiatry & Neurology Psychiatry; ATTEND Psychiatry & Neurology Psychiatry
DX: F10.24 Alcohol dependence with alcohol-induced mood disorder (principal); I10 Essential (primary) hypertension; F32.9 Major depressive disorder, single episode, unspecified; F41.9 Anxiety disorder, unspecified; E78.5 Hyperlipidemia, unspecified; F43.10 Post-traumatic stress disorder, unspecified; F17.210 Nicotine dependence, cigarettes, uncomplicated
CPT/HCPCS: 80053; 85025